=== PATIENT | female | born 1960 | race African-American/Black ===

== ENCOUNTER 2017-04-01 11:40 | Emergency (ER) | payer OTHER ==
[~2017-04-01] VITALS: Ht 160 cm; Wt 113.4 kg
[2017-04-01] MEDS ORDERED: PROPARACAINE 0.5% OPHTH SOLUTION 15ML BOTTLE. OU ONE (12:30)
[2017-04-01] MEDS ORDERED: TETRACAINE 0.5% OPHTH SOLUTION 4ML BOTTLE. ONE (12:43)
[2017-04-01] MEDS ORDERED: FLUORESCEIN 1MG EYE STRIP. OU ONE (13:00)
[2017-04-01 13:30] VITALS: BP 136/56
[2017-04-01] MEDS ORDERED: ERYT1OIN6 OP (13:39)
--- NOTE | 2017-04-01 13:40 | PHYS DOC ---
Past History Past Medical History: Diabetes, Hypertension, Hypothyroid Past Surgical History: Other Alcohol Use: None Drug Use: None Adult General Chief Complaint Chief Complaint: EYE PROBLEMS HPI HPI 56-year-old female with a prior history of bilateral conjunctivitis suspected to be allergic and intermittent since January now presents to the emergency department complaining of persistent eye redness and discomfort. She was having her baseline of intermittent allergic symptoms until 2 weeks ago when she went to the cutting supervisor. She was prescribed antibiotic drops and steroid drops. Patient finished this prescription as directed about a week ago and then 5 days ago she saw the cutting supervisor again, was told that her corneal ulcers were improving and to continue her antibiotic drops and follow-up with the cutting supervisor 2 days from now. Patient states her eyes to be irritated and uncomfortable she came to the emergency department for evaluation. Patient states that the cutting supervisor for workup including dilating her pupils and doing funduscopic exams and everything was doing normal except for bilateral corneas. Patient describes that her tetanus status is up-to-date Review of Systems Review of Systems Constitutional: Denies fever or chills [] Eyes: Denies change in visual acuity, redness, or eye pain [] HENT: Denies nasal congestion or sore throat [] Respiratory: Denies cough or shortness of breath [] Cardiovascular: No additional information not addressed in HPI [] GI: Denies abdominal pain, nausea, vomiting, bloody stools or diarrhea [] : Denies dysuria or hematuria [] Musculoskeletal: Denies back pain or joint pain [] Integument: Denies rash or skin lesions [] Neurologic: Denies headache, focal weakness or sensory changes [] Endocrine: Denies polyuria or polydipsia [] Current Medications Current Medications Current Medications Medications (Trade) Dose Ordered Sig/Huber Start Time Stop Time Status Last Admin Dose Admin Fluorescein Sodium (Ful-Honey 1mg) 1 strip 1X ONCE 04/01/17 13:00 04/01/17 13:01 DC 04/01/17 13:00 1 STRIP Proparacaine HCl (Opthetic) 1 drop 1X ONCE 04/01/17 12:30 04/01/17 12:31 UNV Tetracaine HCl (Tetracaine) 40 drop STK-MED ONCE 04/01/17 12:43 04/01/17 12:44 DC Allergies Allergies Allergies Coded Allergies Type Severity Reaction Last Updated Verified Penicillins Allergy Severe Unknown 04/01/17 Yes Physical Exam Physical Exam Constitutional: Well developed, well nourished, no acute distress, non-toxic appearance. [] HENT: Normocephalic, atraumatic, bilateral external ears normal, oropharynx moist, no oral exudates, nose normal. [] Eyes: PERRLA, EOMI, conjunctiva injected bilaterally with limbic sparing. Mild clear watery discharge, no purulent discharge or visible lesion. No foreign bodies Lesion or mass with lid eversion. Small areas of dye uptake left anterior cornea with no visible foreign body with Wood's lamp. Slit-lamp exam. Normal anterior chambers with no cell and flare. No hyphema. Normal painless direct and consensual pupillary reflex appearing alert and calm with supple neck. Neck: Normal range of motion, no tenderness, supple, no stridor. [] Cardiovascular:Heart rate regular rhythm, no murmur [] Lungs & Thorax: Bilateral breath sounds clear to auscultation [] Abdomen: Bowel sounds normal, soft, no tenderness, no masses, no pulsatile masses. [] Skin: Warm, dry, no erythema, no rash. [] Back: No tenderness, no CVA tenderness. [] Extremities: No tenderness, no cyanosis, no clubbing, ROM intact, no edema. [] Neurologic: Alert and oriented X 3, normal motor function, normal sensory function, no focal deficits noted. [] Psychologic: Affect normal, judgement normal, mood normal. [] Current Patient Data Vital Signs Vital Signs Date Time Temp Pulse Resp B/P (MAP) Pulse Ox O2 Delivery O2 Flow Rate FiO2 04/01/17 11:50 98.1 78 16 98 Room Air EKG EKG [] Radiology/Procedures Radiology/Procedures [] Course & Med Decision Making Course & Med Decision Making Pertinent Labs and Imaging studies reviewed. (See chart for details) Signs and symptoms consistent with corneal abnormality suspicious for corneal ulceration which is previously been described by cutting supervisor per patient. No visible worsening uptake. Left eye with several punctate anterior corneal lesions each less than 1 mm in diameter. The foreign body with slit lamp exam. Discussed with patient critical importance of close follow-up with cutting supervisor as scheduled on Monday. She will take ibuprofen as needed for pain. Prescribed erythromycin ophthalmic ointment and one quarter-inch applied to each eye. The patient will return immediately for numbness worsening symptoms and follow-up with ophthalmology as scheduled in 2 days on Monday. [] Dragon Disclaimer Dragon Disclaimer This chart was dictated in whole or in part using Voice Recognition software in a busy, high-work load, and often noisy Emergency Department environment. It may contain unintended and wholly unrecognized errors or omissions. Departure Departure: Disposition: HOME, SELF-CARE Condition: STABLE Referrals: NON,STAFF (PCP) Patient Instructions: Corneal Ulcer Additional Instructions: It Appears to have corneal ulceration in her left eye as previously discussed by your cutting supervisor. Use 1/4 inch of metabolic ointment in each eye 4 times a day and at bedtime. 800 mg of ibuprofen every 6 hours as needed for discomfort. Follow up with your cutting supervisor on Monday as previously scheduled. Return here or go to the hospital with ophthalmology available immediately for reevaluation of new severe or worsening symptoms Scripts Erythromycin Base (Erythromycin) 1 Gm Oint...g. 1 GM OP QID for 7 Days, [facility] Prov: MARC ALDRIDGE MD 04/01/17 MARC ALDRIDGE MD Apr 01, 2017 13:40
== END 2017-04-01 13:45 | disposition home or self-care (01) ==
LOC: ER 11:40
DX: H18.892 Other specified disorders of cornea, left eye (principal); H16.002 Unspecified corneal ulcer, left eye; E03.9 Hypothyroidism, unspecified; E11.9 Type 2 diabetes mellitus without complications; I10 Essential (primary) hypertension; Z88.0 Allergy status to penicillin
CPT/HCPCS: 99283

== ENCOUNTER 2017-10-24 14:39 | Emergency (ER) | payer OTHER ==
[~2017-10-24 14:39] MED LIST: ERYT1OIN6 OP
[2017-10-24] MEDS ORDERED: IV NORMAL SALINE 1,000ML 1,000 ML IV SCH (14:53)
[2017-10-24] MEDS ORDERED: CLINDAMYCIN 900MG PREMIX 50 ML IV ONE (15:00)
[2017-10-24] MEDS ORDERED: HYDROmorphone PF 2 MG/ML VIAL IV ONE ×2 (15:15→15:45)
[2017-10-24] MEDS ORDERED: DIPHTH,PERTUSS(ACELL),TET TOX 0.5 ML DISP.SYRIN. VAX IM ONE (15:15)
[2017-10-24] MEDS ORDERED: silver sulfADIAZINE 1% CREAM 50GM JAR. TP ONE ×2 (16:11→16:45)
[2017-10-24] MEDS ORDERED: ONDANSETRON PF 4 MG/2 ML VIAL. ONE (16:18)
[2017-10-24] MEDS ORDERED: methylPREDNISolone SOD SUCC PF 125 MG/2 ML VIAL. IV ONE (16:30)
[2017-10-24] MEDS ORDERED: ONDANSETRON PF 4 MG/2 ML VIAL. IV ONE (16:45)
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
[2017-10-24] MEDS ORDERED: CLIN300C8 PO (16:59)
[2017-10-24] MEDS ORDERED: ONDA4TAB10 PO (16:59)
[2017-10-24] MEDS ORDERED: HYDR-965 PO (16:59)
[2017-10-24] MEDS ORDERED: SILV20CR14 TP (16:59)
[2017-10-24] MEDS ORDERED: PROCHLORPERAZINE 10 MG/2 ML VIAL. IV ONE (17:30)
[2017-10-24 18:15] VITALS: BP 171/88
== END 2017-10-24 18:15 | disposition home or self-care (01) ==
LOC: ER 14:39
DX: T20.27XA Burn of second degree of neck, initial encounter (principal); T21.21XA Burn of second degree of chest wall, initial encounter; T20.23XA Burn of second degree of chin, initial encounter; T31.0 Burns involving less than 10% of body surface; Z88.0 Allergy status to penicillin; X12.XXXA Contact with other hot fluids, initial encounter; Y93.89 Activity, other specified; Y99.8 Other external cause status; Y92.89 Other specified places as the place of occurrence of the external cause
CPT/HCPCS: 16020; 90471; 90715; 96365; 96375; 99284; J0780; J1170; J2405; J2930; J3490; J7030